=== PATIENT | female | born 1975 | race Hispanic/Latino ===

== ENCOUNTER → 2024-08-01 09:23 | Outpatient (CLI) | payer OTHER, SELFPAY ==
[2024-08-01 11:39] LABS: Appearance Urine UA CLEAR; Bilirubin Urine UA NEGATIVE (NEGATIVE); Color Urine UA YELLOW; Glucose Urine UA NEGATIVE (Negative); Ketones Urine UA NEGATIVE (NEGATIVE); Leukocyte Esterase Urine UA NEGATIVE (NEGATIVE); Nitrite Urine UA NEGATIVE (Negative); Occult Blood Urine UA NEGATIVE (Negative); Protein Urine UA NEGATIVE (Negative); Urobilinogen Urine UA 0.2 E.U./dL (0.2)
[2024-08-01 11:49] LABS: pH Urine UA 7.5 (4.5-8.0)
[2024-08-01 11:50] LABS: Bacteria Urine None Seen; Culture Indicated Urine Cult Not Indicated; RBC Urine None Seen (0-5/HPF); Squamous Epithelial Cell Urine 0-1 /HPF (0-5/HPF); Urine Volume Low Vol <10mL (spun); WBC Urine None Seen (0-5/HPF)
== END ==
PROVIDERS: Visit Provider Obstetrics & Gynecology Gynecology
DX: N39.3 Stress incontinence (female) (male) (principal)
CPT/HCPCS: 81001

== ENCOUNTER 2024-09-09 09:46 | Day surgery (SDC) | payer OTHER, SELFPAY ==
--- NOTE | 2024-08-29 14:45 | PM.GYNHP.1 ---
History of Present Illness History of Present Illness Narrative: Jia Ochoa is a 49 year old female admitted for surgery Date of procedure:?? September 09, 2024 Preoperative diagnosis:? Stress incontinence Bilateral vulvar labia minora hypertrophy Planned Procedure:?? Mid urethral sling Cystoscopy Bilateral vulvar labiaplasty /partial vulvectomy Postop Meds Tylenol 1000 mg, ?3 times a day? Motrin 600 mg (under age 65 yr) ,? 3 times a day Oycodone 5 mg,? take 1 pill every 4-6 hr as needed, # 10? CC: Enlarged vulvar labia minora with painful symptoms HPI: 48-year-old female who presents for evaluation of above complaint.?? She reports onset of symptoms 4 years ago.?? She considers this a? Moderate? problem. She actually has 3 separate issues. She has vulvar labia minora hypertrophy, stress urinary incontinence, urge urinary incontinence 1. Vulvar labia minora hypertrophy She describes both labia enlarged, starting with her , the hormones apparently mated enlarged. She describes that the increased size of the labia minora rub against each other and cause irritation dryness and recently even vulvar bleeding because it triggers cuts in the skin. She desires surgery to reduce the size of the size of the these symptoms resolve. When she works a especially Denis tear. She works in the [employer] around [employer] and all of the bending and squatting rubs in tears the tissue. On exam the right labia minora is enlarged about 3 x 4 cm over normal on the left is enlarged 3 x 3 cm over normal 2. Stress urinary incontinence She describes stress incontinence that varies from 0 2 many times per day. If she is not exercising, she typically does not leak. But whenever she does physical exertion, she has severe leaking and soaks her pads. She uses 4 pads per day. Her work in the [employer] cause her to leak a large amount. She also goes to the gym and lifts weights is to maintain fitness, and she soaks her pad when she is at the gym. She has completed childbearing. She is interested in surgery to correct her stress incontinence. She does Kegel's and on exam, does them very well. So no role for physical therapy to improve her Kegel's 3. Urge urinary incontinence She has overactive bladder and urge incontinence. She wakes up at night 4 times to void. On the day she voids every 1-1/2 to 2 hours. She has moderate urgency. She leaks on the way to the toilet with every void, small leaks. She has tried oxybutynin 5 mg twice daily without benefit. She is interested in trying a higher dose. Will order oxybutynin XL 15 mg a day. She has some mild difficulty emptying in terms of having to double void to completely empty her bladder. She occasionally gets urinary tract infections. No hematuria except for the severe bladder infection. No tobacco use. Uses an IUD for control. . Not currently sexually active. Plans to be in the future prior hyst -none -x2 c-sec -none ? Pelvic Floor Review of Systems: (HPI) Stress Urinary Incontinence symptoms (JAYLEEN): 0 to many per day Triggers include: Exercise and physical exertion and working in the [employer] ? Urge Incontinence symptoms (Urge UI): With every void, small leaks Triggers include: Full bladder with urge ? Pads: She wears 4 pads per day Overactive Bladder symptoms (OAB):? ? Frequency: Every 1.5-2 hours Nocturia: X4 ? Urgency: Moderate Prior incontinence treatment includes:? Medical: Yes, as above ? Surgical:? No ? Kegels:?? Yes Physical therapy:?No? Pessary:?No? Diet / Fluids: Fluid restriction: Yes, not helping Excessive fluids:?No Pain symptoms:? Painful bladder:???No Dysuria:???No Dyspareunia:? No Dysmenorrhea:? No Urinary Risk Factors UTI?s, recurrent: No Hematuria:? No Kidney Stones:?No? Tobacco use:? No Pelvic Organ Prolapse (POP) symptoms:?? Bulge: Now Pressure and /or Heaviness: Yes Splint for defecation or voiding: No Voiding dysfunction: Abnormal stream:?No Strain to void:? No Incomplete emptying:?No Voiding difficulty:?No Retention:??? No Bowel Function: Constipation:?0? Strain to defecate:? 0 Fiber:?0 Laxatives:?0 Fecal Incontinence:? Liquid stool:? No Solid stool:?No?? Sexually active:?No Incontinence with sex:? No ? General Review of Systems: Constitutional, CV, Endo, Musc-skel, Eyes, Cancer, Skin, Breast, GI, Heme/Lymph, Psych, Urinary, Neuro, Establishment Guide, Resp, Sexual:??? Pertinent positives listed above in HPI All others reviewed and negative. All reviewed on patient questionnaire.? . . [facility] Medical History (Updated 08/01/24 @ 09:10 by Gael Smith MD) OAB (overactive bladder) Urge incontinence Stress incontinence, female Labia minora hypertrophy Tobacco & Substance Use Smoking Status: Never smoker Medications amoxicillin 500 mg capsule 1,000 mg PO BID 06/12/25 [History Confirmed 08/01/24] estradiol 0.01% (0.1 mg/gram) vaginal cream vaginal 08/01/24 [History Confirmed 08/01/24] fluticasone propionate 50 mcg/actuation nasal spray,suspension 2 spray intranasal DAILY 08/01/24 [History Confirmed 08/01/24] levonorgestrel 21 mcg/24 hr (up to 8 years) 52 mg intrauterine device (Mirena) intrauterine 08/01/24 [History Confirmed 08/01/24] oxybutynin chloride 15 mg tablet,extended release 24 hr 15 mg PO DAILY #60 tabs 08/01/24 [Rx Confirmed 08/01/24] Allergies - none UroGyn Exam UroGyn Exam Vitals 08/02/2507:03 Height 5 ft 2 in Weight 157 lb BMI 28.7 BP 120/60 Blood Pressure Location Lt radial Position Sitting UroGyn Exam Narrative: General: healthy, alert, coherent, no acute distress, cooperative, nontoxic Pulmonary: normal breathing, no distress Abdomen: soft, no mass, non-distended, no hernia, non-tender Skin: Scars on Abd: None Vulva: Normal labia majora, introitus, and clitoris, non-tender However, both labia minora are enlarged. No lesions. Nothing to biopsy The right labia minora has a triangular enlargement of 3 x 4 cm. The left labia minora is enlarged 3 x 3 cm Urethra meatus: normal, no discharge Perineum: Normal, non-tender Urethra: No mass, non-tender , significant hypermobility Bladder: no mass, non-tender Vagina: No lesions, no discharge, no atrophy, non-tender Prolapse none Levators: Non-tender, 4-5/ 5 kegel squeeze Cervix: NorMAL, No lesions, no discharge, non-tender Uterus: normal size, non-tender Bimanual: no mass, no adnexal mass, non-tender Anus: No lesion, non-tender, no hemorrhoid Rectum: No mass, normal sphincter tone, Empty Cough Stress test: Neg PVR: 10 mL by catheter Urethral angle hypermobile: Yes Pelvic Organ Prolapse: No POP-Q Exam: Aa: Minus 2 Ba: -2 Ap: -2 Bp: -2 C: Minus 7 D: -10 TVL: 10 GH: 3 PB: 3 Introitus size: 2 fingerbreadths Cystocele stage: 1 Rectocele stage: 1 Uterine/Vault Prolapse Stage: 1 Assessment & Plan (1) Labia minora hypertrophy: Status: Acute (2) Stress incontinence, female: Status: Acute (3) Urge incontinence: Status: Acute (4) OAB (overactive bladder): Status: Acute Assessment and Plan ? Patient counseled regarding above conditions.? Educational materials given to patient. 1. Vulvar labia minora hypertrophy She has bilateral enlargement, as noted above, 3 x 4 cm on the right, 3 x 3 cm on the left. With significant symptomatic burden with pain and irritation affecting her to do her work. Surgery is indicated recommended is partial vulvectomy, aka bilateral vulvar labiaplasty 2. Stress Urinary Incontinence with urethral hypermobility:? This diagnosis was discussed with the patient. The etiology was explained. Treatment options were discussed including expectant management, pelvic floor exercises, pessary trial, and surgical intervention (mid-urethral sling, Loera urethropexy, P-V sling, Susan urethral plication, urethral bulking injection).? Risks and benefits of surgery were briefly outlined. We discussed that she might be a candidate for a Midurethral Sling as treatment of her stress incontinence. Success rate of being dry from stress incontinence is about 80-85%; another 10-15% of patients are markedly improved but not cured;? 1-2% will fail, and 1-2% will need the sling cut because it is too tight.? The risk of temporary urinary retention requeiring temporary catheterization is about 15-20%; risk of urinary retention requiring sling release procedure is about 1-2%, as noted above.? We discussed the small 1-3% of mesh erosion as well as the small risk of de gayathri urgency.? This procedure is not designed to treat Urge Incontinence symptoms; however, 30-50% of patients with overactive bladder/ urgency urinary incontinence will have improvement in these symptoms, in 30% these symptoms will stay the same, and in 20-30% these symptoms will worsen. Will do urodynamics next. On August 27. If stress incontinence is diagnosed, she would like to proceed with a sling She would like to do the surgery for the sling at the same time as the partial vulvectomy described above see below for counseling 3. Overactive bladder and urge incontinence.?? This diagnosis and its etiology was discussed with the patient.? Treatment options were discussed including: Behavior changes ( Limit fluid intake, Avoiding fluid intake 3 hours before bedtime, Avoiding bladder irritants / follow bladder diet, Bladder training exercises), Kegel / pelvic floor muscle exercises,? OAB Medications, and procedures to include:? bladder botox A injections, Interstim, and PTNS.?? OAB handout given.? Bladder Diet handout given (Decrease caffeine, decrease acidic foods, decrease tobacco) Will increase her medication from oxybutynin 5 mg twice a day and changed to oxybutynin XL 15 mg once a day Urodynamics on August 27 will help sort out the diagnosis URODYNAMIC STUDIES 49 year old female, here for evaluation of stress incontinence Treatment to date includes:? Kegel exercises, planning to undergo a sling if diagnosis confirmed Complex Uroflowmetry: Voided Volume:? 330 cc? Max Flow:? 40 cc/s? Avg Flow:? 20 Cc/s PVR:? 70 cc Pattern:? Normal Filling Cystometry: Position:? Semi-Fowlers? Catheters: air-charged T-Doc? Fill rate:? 50 cc/min First Sensation:? 122 cc? First Urge:? 473 cc? Strong Urge:? 473 Cc Capacity:? 500 cc Detrusor Overactivity (DO): No Compliance:? Normal EMG tracing -normal Valsalva Leak Point Pressure: at 500 cc: . 100+ cm H2O Leak ? : Yesthe catheter outwas negative at 500 cc the catheter in Cough stress test, positive: Yes Stress Urinary Incontinence (JAYLEEN): Yes Urethral Pressure Profile: Maximum urethral closure pressure:? 112 cm H2O Pressure-Flow Voiding Study: Voided Volume:? 670 cc? Max Flow:? 46 cc/s? Pressure at Peak Flow:? 42 cm H2O? Avg Flow:? 18 cc/s Normal pattern Normal PFVS ? ASSESSMENT Urodynamic evidence of stress incontinence JAYLEEN, yes ISD, no DO, no Six hundred seventy-eight ml bladder capacity No urinary retention or voiding dysfunction. PLAN We discussed her testing results and treatment options in detail: 1.? Stress Urinary Incontinence with urethral hypermobility:? This diagnosis was discussed with the patient. The etiology was explained. Treatment options were discussed including expectant management, pelvic floor exercises, pessary trial, and surgical intervention (mid-urethral sling, Loera urethropexy, P-V sling, Susan urethral plication, urethral bulking injection).? Risks and benefits of surgery were briefly outlined. We discussed that she is a candidate for a Midurethral Sling as treatment of her stress incontinence. Success rate of being dry from stress incontinence is about 80-85%; another 10-15% of patients are markedly improved but not cured;? 1-2% will fail, and 1-2% will need the sling cut because it is too tight.? The risk of temporary urinary retention requeiring temporary catheterization is about 15-20%; risk of urinary retention requiring sling release procedure is about 1-2%, as noted above.? We discussed the small 1-3% of mesh erosion as well as the small risk of de gayathri urgency.? This procedure is not designed to treat Urge Incontinence symptoms; however, 30-50% of patients with overactive bladder/ urgency urinary incontinence will have improvement in these symptoms, in 30% these symptoms will stay the same, and in 20-30% these symptoms will worsen. Surgical Counselling Note Patient seen for surgical counselling.? She desires surgical repair. Please see? H & P for exam and discussion. Date of procedure:?? September 09, 2024 Preoperative diagnosis:? Stress incontinence Bilateral vulvar labia minora hypertrophy Planned Procedure:?? Mid urethral sling Cystoscopy Bilateral vulvar labiaplasty /partial vulvectomy Postop Meds Tylenol 1000 mg, ?3 times a day? Motrin 600 mg (under age 65 yr) ,? 3 times a day Oycodone 5 mg,? take 1 pill every 4-6 hr as needed, # 10? Patient counseled extensively about the Risks, Benefits, and Alternatives to surgery.? She was offered the opportunity to ask any questions, and all questions were answered. ? Surgical Risks include: Bleeding, Hemorrhage, Transfusion, Infection (especially wound or bladder), Injury to adjacent organs (especially bladder, ureter, bowel, blood vessels, nerves), Postop or Chronic Pain, need for Reoperation, and Life-threatening event (especially M.I., CVA, PE, DVT). Procedure Risks include: Failure to Cure condition, Recurrence of condition months or years later, Urinary incontinence, Voiding dysfunction or Urinary Retention with prolonged catheter use, Poor wound healing, Erosions of any mesh or graft used, Dyspareunia, Vaginal scarring or narrowing, Need for additional surgery (immediate or delayed).? The expected cure and improvement and failure rates were discussed. Patient counseled to avoid the following for 6 weeks after surgery: (1) Impact sports (like running or jumping), walking and stairs OK (2) Lifting over 20# (3) Sexual intercourse No limits after 6 weeks. ? Good exercise tolerance, > 4 Mets. Her current medications were reviewed, and instructions given over which to use and which to discontinue before surgery.? Post-operative care instructions reviewed.? We discussed post-operative pain: Pain should be in the mild-moderate range, but can be moderate-severe for the first few days.?? Prescriptions will typically be given for (1) acetaminophen (Tylenol) and (2) non-steroidal anti-inflammatory drug (NSAID, like Motrin or Naprosyn), use both together, around the clock. Prescription will also be given for a (3) narcotic pain medication. Use the narcotic as needed, as a booster to the Tylenol and NSAID. You might need 0-4 narcotic pills a day typically. The narcotic will only be needed for a few days.?? Gradually use less of the narcotic, but continue the Tylenol and NSAID.? After a few days, the narcotic should no longer be needed, and only the Tylenol and NSAID will be needed.? Warm packs or cold packs can also be used for pain.??Do not drive for as long as you are using the narcotic pain medication? - this should only be a few days.?? Constipation is associated with use of narcotic pain medications, and can be improved with use of a stool softener, or fiber, or a mild laxative.? All of her questions were answered Gael Smith MD UroGynecology & Pelvic Reconstructive Surgery [facility] Medical History (Updated 08/01/24 @ 09:10 by Gael Smith MD) OAB (overactive bladder) Urge incontinence Stress incontinence, female Labia minora hypertrophy Meds Home Medications and Allergies Home Medications ?Medication ?Instructions ?Recorded ?Confirmed ?Type amoxicillin 500 mg capsule 1,000 mg PO BID 08/01/24 08/01/24 History estradiol 0.01% (0.1 mg/gram) vaginal 08/01/24 08/01/24 History vaginal cream fluticasone propionate 50 2 spray intranasal DAILY 08/01/24 08/01/24 History mcg/actuation nasal spray,suspension levonorgestrel 21 mcg/24 hr (up to intrauterine 08/01/24 08/01/24 History 8 years) 52 mg intrauterine device (Mirena) oxybutynin chloride 15 mg 15 mg PO DAILY #60 tabs 08/01/24 08/01/24 Rx tablet,extended release 24 hr ibuprofen 600 mg tablet 600 mg PO TID postop pain #30 tabs 08/29/24 08/29/24 Rx oxycodone 5 mg tablet 5 mg PO Q8H PRN pain #10 tabs 08/29/24 08/29/24 Rx Allergies Allergy/AdvReac Type Severity Reaction Status Date / Time No Known Drug Allergies Allergy Unverified 08/01/24 08:04 Assessment & Plan Time-Based Coding :: [TOTAL MINUTES] spent with patient and on the chart (including review of chart, obtaining history, exam, reviewing outside data, placing orders, documenting exam and treatment plan, and counseling patient) on [DATE].
[2024-09-04 12:57] VITALS: BMI 28.7
[2024-09-09] VITALS (12 sets, daily range): BP systolic 92–122; BP diastolic 53–76; PULSE 59–82; RESP 8–19; TEMP 36.1–36.3; O2SAT 98–100; BMI 28.7
[2024-09-09] MEDS: ACETAMINOPHEN 325 MG TABLET 975 MG PO (10:11)
[2024-09-09] MEDS: GABAPENTIN 300 MG CAPSULE PO (10:11)
[2024-09-09] MEDS: PHENAZOPYRIDINE 100 MG TABLET 200 MG PO (10:11)
[2024-09-09] MEDS: SCOPOLAMINE 1 PATCH TOP (10:12)
[2024-09-09] MEDS: LACTATED RINGERS 1,000 ML 42 ML IV ×2 (10:12→12:26)
--- NOTE | 2024-09-09 10:42 | PM.PREOP ---
Pre-operative Note Interval Note History & Physical reviewed/Exam performed by Physician: Yes Changes to H&P: No
--- NOTE | 2024-09-09 10:57 | PM.GYNOP.1 ---
Operative Date/Time/Diagnoses Date of procedure: 09/09/24 Time of procedure: 11:45 Pre-op diagnosis: stress incontinence, bilateral vulvar labia minora hypertrophy Post-op diagnosis: same Procedure & Clinicians Procedure: Procedures Operation Date: 09/09/24 11:15 <No data on this case meets the specified criteria> Operative Notes Findings: Operative Note Surgeon:? Gael Smith MD Emergency Room Technician:?? none Pre-Op Diagnosis:?? Stress incontinence, bilateral vulvar labia minora hypertrophy Post-Op Diagnosis:?? Same? Procedure:?? TVT mid-urethral sling, cystoscopy Partial vulvectomy / bilateral vulvar labiaplasty Findings (brief): ? 1.? TVT sling placed at mid-urethra, tension-free ? 2.? Cystoscopy with normal bladder, ureters, urethra, no trocar injury 3. Each labia minora was enlarged approximately 3 x 4 cm of redundant tissue on each side. 4. Per her request, the labia minora were completely excised bilaterally. 5. The right labia minora wound was closed with a deep running suture of 3-0 Vicryl. The skin was closed with a running suture of 3-0 Monocryl. The procedure was repeated on the left side. Good cosmesis. Date of Surgery:? 09-09-2024 Complications:? [none Specimens:? right and left labia minora Anesthesia Technique:?? [General endotracheal Estimated Blood Loss (mls):? 125 Blood Replacement (mls):? [none Drains:? [Reyna Condition:? [Stable Procedure in detail: After consent was confirmed, the patient was taken to the operating room and placed under general anesthesia without incident.? Sequential compression devices were in place and active.? She received perioperative antibiotics.? She was then prepped and draped in the usual sterile fashion after placement in the dorsal lithotomy position using the Jose stirrups.? A Reyna catheter was placed.? With the Reyna catheter in place, the anterior vaginal mucosa beneath and lateral to the urethra was injected with 10-20 cc of? 0.5% lidocaine / epinephrine 1:200,000.? A 2-3 cm midline incision was made at the level of the midurethra with a scapel. Metzenbaum scissors were used to dissect the vagina from the urethra and then create tunnels beneath the vaginal mucosa up toward the pubic bone on each side.? A marking pen was used to damian the skin just above the pubic bone and 2 cm from the midline bilaterally, and two small 8-10 mm incisions were made on the suprapubic skin.? The trocar was passed from the right vaginal tunnel, behind the pubic bone, to the right suprapubic incision, and this was repeated on the left side.? The Reyna catheter was removed, and cystoscopy was performed with a 70 degree lens. There was no trocar injury, and the bladder, ureters, and urethra were normal.? The Reyna catheter was reinserted.? The sling was pulled into position in a tension-free manner, and a Susan clamp was easily passed between the sling and the urethra.? The plastic sheaths were removed to anchor the sling, and tension was checked again. The ends of the sling were trimmed just below the skin, and the skin incisions were cleaned and closed with dermabond. The vaginal incision was closed with 2-0 vicryl in a running fashion. Next, the partial vulvectomy / bilateral labiaplasty was done. The right labia minora was grasped with 3 Allis clamps and the incision line was marked. The tissue was injected with 0.5% lidocaine with epi, approximately 10-15 cc. Scalpel was used to incise along the marked vulvar tissue , and then the specimen was excised using the scalpel and electrocautery. The specimen was passed off the field. Hemostasis was achieved with electrocautery. The wound was repaired in 2 layers. The 1st layer was a running deep layer of 2-0 Vicryl, to reapproximate the deep vulvar tissue. The 2nd layer was a running suture of 3-0 Monocryl, to reapproximate the skin. The same procedure was repeated on the left side. Sponge, needle and instrument count was correct.? The patient tolerated the procedure well and was taken to the recovery room in stable condition. Gael Smith MD UroGynecology & Pelvic Reconstructive Surgery [place], [place] Applied: catheter and implant(s) (Sling)
[2024-09-09] MEDS: CEFAZOLIN 2 GM/100 ML PREMIX 100 ML IV (11:25)
--- NOTE | 2024-09-09 11:26 | SUR.OPER ---
Lithotomy on padded OR bed, head on pillow, arms secured on padded arm boards at <90 degrees abduction. Legs secured in padded yellow fins stirrups.
[2024-09-09] MEDS: LIDOCAINE 1% 20 ML INJ (11:39)
[2024-09-09] MEDS: ONDANSETRON 4 MG/2 ML INJ IV (13:55)
[2024-09-09] MEDS: hydrOXYzine 50 MG/ML INJ 25 MG IM (13:55)
[2024-09-09] MEDS: HYDROMORPHONE 1 MG INJ IV ×2 (13:56→14:06)
[2024-09-09] MEDS: OXYCODONE IR 5 MG TABLET PO ×2 (14:10→17:37)
--- NOTE | 2024-09-09 15:04 | SUR.PHASEII ---
Clarified may apply ice pack to perineum per Dr. Blake.
--- NOTE | 2024-09-09 16:25 | SUR.PHASEII ---
Instilled 300cc sterile water and d/c'd rodriguez at 1550; assisted pt up to bathroom at 1600; at 1610 pt stated she was unable to void. Large vaginal blood clot noted in hat but no urine. New bag of IVF hung, PO fluid intake with juice and water encouraged. Will attempt again. Chu FELICIANO
--- NOTE | 2024-09-09 18:23 | SUR.PHASEII ---
Pt d/c'd via wheelchair with sister at 1800; sister returned to curb, car unable to start. currently attempting to find jumper cables/assist
== END 2024-09-09 18:25 | disposition home or self-care (01) ==
PROVIDERS: Referring Provider Obstetrics & Gynecology Gynecology; Visit Provider Obstetrics & Gynecology Gynecology
DX: N39.46 Mixed incontinence (principal); N32.81 Overactive bladder; N90.60 Unspecified hypertrophy of vulva
CPT/HCPCS: 57288; 56620; 81025; C1771; J0690; J1100; J1171; J1885; J2250; J2405; J2704; J3010; J3410

== ENCOUNTER → 2024-09-13 16:22 | Outpatient (CLI) | payer OTHER, SELFPAY ==
[2024-09-13 17:44] LABS: Appearance Urine UA CLEAR; Bilirubin Urine UA NEGATIVE (NEGATIVE); Color Urine UA YELLOW; Glucose Urine UA NEGATIVE (Negative); Ketones Urine UA NEGATIVE (NEGATIVE); Leukocyte Esterase Urine UA NEGATIVE (NEGATIVE); Nitrite Urine UA NEGATIVE (Negative); Occult Blood Urine UA 1+ (Negative); Protein Urine UA NEGATIVE (Negative); Specific Gravity Urine UA <=1.005 (1.000-1.035); Urobilinogen Urine UA 0.2 E.U./dL (0.2)
[2024-09-13 17:54] LABS: pH Urine UA 7.0 (4.5-8.0)
[2024-09-13 17:57] LABS: Culture Indicated Urine Cult Not Indicated
== END ==
LOC: LAB 16:24
PROVIDERS: Referring Provider Obstetrics & Gynecology; Visit Provider Obstetrics & Gynecology
DX: R30.0 Dysuria (principal)
CPT/HCPCS: 81001

== ENCOUNTER → 2024-09-17 14:55 | Outpatient (CLI) | payer OTHER, SELFPAY | PROVIDERS: Visit Provider Obstetrics & Gynecology Gynecology | DX: N39.41 Urge incontinence (principal) | CPT/HCPCS: 87086 ==

== ENCOUNTER → 2024-10-28 16:26 | Outpatient (CLI) | payer OTHER, SELFPAY ==
[2024-10-28 17:46] LABS: Follicle Stimulating Hormone 8.03 mIU/mL
== END ==
PROVIDERS: Referring Provider Obstetrics & Gynecology Gynecology; Visit Provider Obstetrics & Gynecology Gynecology
DX: N95.1 Menopausal and female climacteric states (principal)
CPT/HCPCS: 36415; 83001; 83002